=== PATIENT | female | born 1940 | race Caucasian/White ===

== ENCOUNTER 2016-09-18 13:02 | Emergency (ER) | payer MEDICARE ==
[2016-09-18] MEDS ORDERED: SURGICEL 3X4 1 EACH PACKET ONE (14:13)
[2016-09-18 14:32] LABS: INR 1.69; PROTHROMBIN TIME 18.3 SECONDS (9.3-11.4)
== END 2016-09-18 15:00 | disposition home or self-care (01) ==
LOC: ED 13:02
DX: S61.102A Unspecified open wound of left thumb with damage to nail, initial encounter (principal); W26.0XXA Contact with knife, initial encounter; Y93.G1 Activity, food preparation and clean up; Z86.718 Personal history of other venous thrombosis and embolism; Z88.1 Allergy status to other antibiotic agents; Z88.5 Allergy status to narcotic agent